=== PATIENT | female | born 1940 | race African-American/Black ===

== ENCOUNTER 2018-12-29 21:50 | Emergency (ER) | payer OTHER ==
[~2018-12-29] VITALS: Ht 165.1 cm; Wt 77.0 kg
[2018-12-30] MEDS ORDERED: IBUPROFEN 600MG TABLET PO SCH (00:31)
[2018-12-30] MEDS ORDERED: HYDROCODONE/ACETAMINOPHEN 5/325MG TABLET PO STA (02:22)
[2018-12-30 03:48] VITALS: BP 149/69
== END 2018-12-30 03:57 | disposition home or self-care (01) ==
LOC: ER 21:50
DX: M65.4 Radial styloid tenosynovitis [de Quervain] (principal); M19.032 Primary osteoarthritis, left wrist
CPT/HCPCS: 73110; 99283

== ENCOUNTER 2022-05-08 00:50 | Emergency (ER) | payer OTHER ==
[~2022-05-08] VITALS: Ht 167.6 cm; Wt 70.0 kg
[2022-05-08 01:27] LABS: BASOPHILS % 0.4 % (0.0-2.0); HEMATOCRIT. 38.9 % (36.0-48.0); LYMPHOCYTES % 39.2 % (20.0-50.0); MEAN CORPUSCULAR HEMOGLOBIN 31.4 pg (28.0-32.0); MEAN CORPUSCULAR VOLUME 94.5 fL (81.0-99.0); MEAN PLATELET VOLUME 7.9 fl (7.4-10.4); NEUTROPHILS % 51.4 % (40.0-76.0); PLATELET 253 x1000/uL (130-400); RED BLOOD CELL COUNT 4.12 mill/uL (4.2-5.4); RED CELL DISTRIBUTION WIDTH 13.1 % (11.6-14.6)
[2022-05-08 01:47] LABS: CHLORIDE 106 mEq/L (98-107)
[2022-05-08 06:24] VITALS: BP 178/86
== END 2022-05-08 06:57 | disposition home or self-care (01) ==
LOC: ER 00:50
DX: I48.91 Unspecified atrial fibrillation (principal); E78.00 Pure hypercholesterolemia, unspecified; I10 Essential (primary) hypertension
CPT/HCPCS: 36415; 80053; 83880; 84484; 85025; 93005; 99284